=== PATIENT | female | born 1930 | race Hispanic/Latino ===

== ENCOUNTER 2017-01-26 08:53 | Outpatient (CLI) | payer MEDICARE ==
--- NOTE | 2017-01-26 13:57 | Cat Scan Report ---
CT ABDOMEN AND PELVIS WITH CONTRAST: 01/26/17 08:53:00 CLINICAL: Abdominal pain. COMPARISON: None. TECHNIQUE: Volumetric acquisition and 1.25 millimeter scan reconstructions after the uneventful intravenous injection of 100 cc Omnipaque 300. Consent was obtained prior to the administration of contrast. Oral contrast was also given. FINDINGS: Abdomen: Small hiatal hernia. The lung bases are clear.Normal liver, bile ducts and gallbladder. Normal stomach and duodenum. The pancreas is small with a mildly prominent duct. A 6 mm cyst at the pancreatic body. No. Pancreatic fluid or inflammatory changes. No calcifications. Normal adrenal glands. A right lower pole renal cyst measures 2.4 cm. The intrarenal collecting systems are mildly dilated and the ureters are moderately dilated. No urinary calculus. The ureters are dilated to the urinary bladder. The small bowel is normal.Mild diverticulosis of the colon but no diverticulitis. An appendix is not identified. Calcification of the abdominal aorta and iliac arteries. No mass, lymphadenopathy or ascites.No pneumoperitoneum. Pelvis: The urinary bladder is moderately distended with a normal thin wall. No bladder mass or calculus.Normal rectum. Extensive diverticulosis of the sigmoid colon but no signs of diverticulitis.No pelvic mass or fluid. Bone windows demonstrate no suspicious bone lesion. IMPRESSION:1. Small hiatal hernia. 2. Diverticulosis but no diverticulitis. 3. Small pancreas with a mildly prominent pancreatic duct but no other signs to suggest pancreatitis. 4. A 6 mm cyst of the necrotic body.
== END 2017-01-26 08:54 | disposition home or self-care (01) ==
LOC: CT 08:53
PROVIDERS: ATTEND Internal Medicine Gastroenterology
DX: K44.9 Diaphragmatic hernia without obstruction or gangrene (principal); K57.90 Diverticulosis of intestine, part unspecified, without perforation or abscess without bleeding; Z87.891 Personal history of nicotine dependence
CPT/HCPCS: 36415; 74177; 82565; 84520; Q9967